=== PATIENT | male | born 1955 | race African-American/Black ===

== ENCOUNTER 2020-09-12 19:53 | Emergency (ER) | payer MEDICARE, OTHER ==
[~2020-09-12] VITALS: Ht 167.6 cm; Wt 86.3 kg
[~2020-09-12 19:53] MED LIST: ATOR20TA58 PO; GLYB5TAB3 PO; LISI10TA16 PO; METF500T16 PO; METO-247 PO; POLY119P4 PO
[2020-09-12] MEDS ORDERED: BISACODYL 5 MG TABLET.DR. PO ONE (20:30)
[2020-09-12] MEDS ORDERED: SODIUM PHOSPHATES 19/7GM 133 ML ENEMA. PR ONE (20:30)
[2020-09-12] MEDS ORDERED: MAGNESIUM CITRATE 296 ML SOLUTION. PO ONE (20:30)
--- NOTE | 2020-09-12 20:34 | PHYS DOC ---
Past Medical History Past Medical History: Constipation, Diabetes-Type II, High Cholesterol, H ypertension (АЛЕКСАНДР GOMEZ APRN) Past Surgical History: No Surgical History (АЛЕКСАНДР GOMEZ APRN) Smoking Status: Never Smoker Alcohol Use: None Drug Use: None (АЛЕКСАНДР GOMEZ APRN) General Adult EDM: Chief Complaint: CONSTIPATION HPI: HPI: Patient is a 64 year old male with a history of constipation, hypertension, diabetes type 2, high cholesterol ED today complaining of constipation for 2 days. Patient reports trying MiraLAX with no relief, today he tried a suppository prior to coming to the ED. Denies any abdominal pain but states his abdomen is uncomfortable. (АЛЕКСАНДР GOMEZ APRN) Review of Systems: Review of Systems: Constitutional: Denies fever or chills. [] GI: Reports constipation. Denies abdominal pain, nausea, vomiting, bloody stools or diarrhea. [] : Denies dysuria. [] Musculoskeletal: Denies back pain or joint pain. [] Integument: Denies rash. [] Neurologic: Denies headache, focal weakness or sensory changes. [] Psychiatric: Denies depression or anxiety. [] (АЛЕКСАНДР GOMEZ APRN) Heart Score: Risk Factors: Risk Factors: DM, Current or recent (<one month) smoker, HTN, HLP, family history of CAD, obesity. Risk Scores: Score 0 - 3: 2.5% MACE over next 6 weeks - Discharge Home Score 4 - 6: 20.3% MACE over next 6 weeks - Admit for Clinical Observation Score 7 - 10: 72.7% MACE over next 6 weeks - Early Invasive Strategies (АЛЕКСАНДР GOMEZ APRN) Current Medications: Current Medications Medications (Trade) Dose Ordered Sig/Peter Start Time Stop Time Status Last Admin Dose Admin Bisacodyl (Dulcolax Tab) 10 mg 1X ONCE 09/12/20 20:30 09/12/20 20:31 Magnesium Citrate (Citroma) 296 ml 1X ONCE 09/12/20 20:30 09/12/20 20:31 Sodium Monofluorophosphate (Fleet Adult) 133 ml 1X ONCE 09/12/20 20:30 09/12/20 20:31 (АЛЕКСАНДР GOMEZ APRN) Allergies: Allergies: Allergies Coded Allergies Type Severity Reaction Last Updated Verified No Known Drug Allergies 09/09/19 No (АЛЕКСАНДР GOMEZ APRN) Physical Exam: PE: Constitutional: Well developed, well nourished, no acute distress, non-toxic appearance. [] Abdomen: Bowel sounds normal, soft, no tenderness, no masses, no pulsatile masses. [] Rectal exam-patient has loose stool coming out of his rectum Skin: Warm, dry, no erythema, no rash. [] Back: No tenderness, no CVA tenderness. [] Extremities: No tenderness, no cyanosis, no clubbing, ROM intact, no edema. [] Neurologic: Alert and oriented X 3, normal motor function, normal sensory function, no focal deficits noted. [] Psychologic: Affect normal, judgement normal, mood normal. [] (АЛЕКСАНДР GOMEZ APRN) Current Patient Data: Vital Signs: Vital Signs Date Time Temp Pulse Resp B/P (MAP) Pulse Ox O2 Delivery O2 Flow Rate FiO2 09/12/20 20:05 98.3 79 18 216/86 (129) 99 Room Air 98.3 (АЛЕКСАНДР GOMEZ APRN) EKG: EKG: [] (АЛЕКСАНДР GOMEZ APRN) Radiology/Procedures: Radiology/Procedures: []PROCEDURE: ABDOMEN SUPINE & UPRIGHT Exam: Abdomen 2 views INDICATION: Constipation TECHNIQUE: Upright and supine views of the abdomen Comparisons: None FINDINGS: Large amount of stool is noted throughout the colon. Air and stool are noted throughout the level of the colon to level the rectum in a nonobstructive bowel gas pattern. No suspicious masses or calcifications. Visual is osseous structures are unremarkable. IMPRESSION: Large stool burden throughout the colon. Nonobstructive bowel gas pattern. Electronically signed by: Leesa Ramirez MD (09/12/2020 9:45 PM) [facility] DICTATED and SIGNED BY: LEESA RAMIREZ MD DATE: 09/12/20 [id number] (АЛЕКСАНДР GOMEZ APRN) Course & Med Decision Making: Course & Med Decision Making Pertinent Labs and Imaging studies reviewed. (See chart for details) This is a 64-year-old male patient presenting to the ED today complaining of constipation for 2 days. Took MiraLAX, also used a suppository prior to coming to the ED. Currently having loose stools from the rectum. Given mag citrate, Dulcolax p.o., and Fleet enema performed, patient had a bowel movement. Discharge to home. Education on bowel preps provided. (АЛЕКСАНДР GOMEZ APRN) Fatoumata Disclaimer: Fatoumata Disclaimer: This electronic medical record was generated, in whole or in part, using a voice recognition dictation system. (АЛЕКСАНДР GOMEZ APRN) Departure Departure Impression: Primary Impression: Constipation Qualified Codes: K59.00 - Constipation, unspecified Disposition: 01 DC HOME SELF CARE/HOMELESS Condition: STABLE Referrals: TIBURCIO ARAGON (PCP) Follow-up in 1 to 2 weeks Patient Instructions: Constipation, Adult, [id number] Additional Instructions: You were evaluated for constipation. Consider taking MiraLAX and a stool softener every day. If you are constipated consider using magnesium citrate. Also perform a Fleet enema if you are constipated. Follow-up with your doctor next week Attending Signature Attending Signature I have reviewed the PA/VENEER CUTTER's note and plan of care. I was available for consultation as needed during the patient's visit in the emergency department. I agree with the clinical impression, plan, and disposition. (HA PENA DO) АЛЕКСАНДР GOMEZ APRN Sep 12, 2020 20:34 HA PENA DO Sep 13, 2020 01:01
--- NOTE | 2020-09-12 21:48 | RAD ---
Exam: Abdomen 2 views INDICATION: Constipation TECHNIQUE: Upright and supine views of the abdomen Comparisons: None FINDINGS: Large amount of stool is noted throughout the colon. Air and stool are noted throughout the level of the colon to level the rectum in a nonobstructive bowel gas pattern. No suspicious masses or calcifications. Visual is osseous structures are unremarkable. IMPRESSION: Large stool burden throughout the colon. Nonobstructive bowel gas pattern. Electronically signed by: Leesa Powell MD (09/12/2020 9:45 PM) [facility]
[2020-09-12 22:15] VITALS: BP 170/78
== END 2020-09-12 22:10 | disposition home or self-care (01) ==
LOC: ER 19:53
DX: K59.00 Constipation, unspecified (principal); E11.9 Type 2 diabetes mellitus without complications; E78.00 Pure hypercholesterolemia, unspecified; I10 Essential (primary) hypertension
CPT/HCPCS: 74021; 99284